=== PATIENT | female | born 1960 | race Caucasian/White ===

== ENCOUNTER 2016-10-23 15:05 | Outpatient (CLI) | payer MEDICARE ==
[~2016-10-23] VITALS: Ht 160 cm; Wt 84.0 kg
[~2016-10-23 15:05] MED LIST: ALDACTAZIDE 25/1 TAB PO; AMRIX; FLEXERIL 1010 MG/TAB PO; INDERIDE PO; LAMICTAL CD25 MG PO; LIDODERM PATCH TP; LISINOPRIL10 MG PO; LORTAB 7.5/5001 TAB PO; MEVACOR 20M20 MG/TAB PO; NIACIN500 M3 PO; NORCO 325 MG-101 TAB PO; PERCOCET 325 MG1 TA2 PO; PRILOSEC 20MG20 MG PO; PRINIVIL10 MG PO; VALIUM5 MG PO; VICODIN 5/5001 UDTAB PO; WELLBUTRIN SR150 M1 PO; WELLBUTRIN XL150 MG PO; [UNRECOGNIZED DRUG - MIXTURE]
[2016-10-23 15:29] VITALS: BP 100/53; PULSE 71; TEMP 98.1
[2016-11-30] MEDS ORDERED: ARIMIDEX1 MG PO (11:32)
== END 2016-10-23 16:03 | disposition home or self-care (01) ==
LOC: EUO 15:05
DX: C50.512 Malignant neoplasm of lower-outer quadrant of left female breast (principal); I10 Essential (primary) hypertension; Z45.2 Encounter for adjustment and management of vascular access device
CPT/HCPCS: J1644

== ENCOUNTER 2016-11-13 12:30 | Outpatient (RCR) | payer MEDICARE ==
[2016-11-30] MEDS ORDERED: ARIMIDEX1 MG PO (11:32)
== END 2016-11-23 | disposition home or self-care (01) ==
LOC: MKS.ESL.PT
DX: I89.0 Lymphedema, not elsewhere classified (principal); Z85.3 Personal history of malignant neoplasm of breast
CPT/HCPCS: G8984-GP; G8985-GP; G8987-GP

== ENCOUNTER → 2016-11-30 | Outpatient (CLI) | payer MEDICARE ==
[~2016-11-30] MED LIST changes: +ARIMIDEX1 MG PO; +B COMPLEX PO; +B-12 100 MCG PO; +CALCIUM CITRAT950 MG PO; +CYMBALTA 30MG30 MG PO; +HCTZ 25MG TAB25 MG PO; +INDERAL40 MG PO; +MAGNESIUM ELEME30 MG PO; +NORCO 325 MG-51 TAB PO; +VALIUM 5MG T5 MG/TAB PO; +VITAMIN D31000 I1 PO; +ZESTRIL 10MG10 MG PO; +ZINC SO4 PO
[2016-11-30 11:32] VITALS: BP 106/62; PULSE 73; TEMP 98.2
== END ==
LOC: EUO 11:00
DX: Z45.2 Encounter for adjustment and management of vascular access device (principal)
CPT/HCPCS: J1644

== ENCOUNTER 2016-12-01 12:30 | Outpatient (RCR) | payer MEDICARE ==
[~2016-12-01 12:30] MED LIST changes: -B COMPLEX PO; -B-12 100 MCG PO; -CALCIUM CITRAT950 MG PO; -CYMBALTA 30MG30 MG PO; -HCTZ 25MG TAB25 MG PO; -INDERAL40 MG PO; -MAGNESIUM ELEME30 MG PO; -NORCO 325 MG-51 TAB PO; -VALIUM 5MG T5 MG/TAB PO; -VITAMIN D31000 I1 PO; -ZESTRIL 10MG10 MG PO; -ZINC SO4 PO
[2017-02-02] MEDS ORDERED: NORCO 325 MG-51 TAB PO (10:30)
[2017-02-02] MEDS ORDERED: ARIMIDEX1 MG PO (10:31)
[2017-02-02] MEDS ORDERED: WELLBUTRIN SR150 M1 PO (10:32)
[2017-02-02] MEDS ORDERED: B COMPLEX PO (10:32)
[2017-02-02] MEDS ORDERED: CALCIUM CITRAT950 MG PO (10:35)
[2017-02-02] MEDS ORDERED: VALIUM 5MG T5 MG/TAB PO (10:37)
[2017-02-02] MEDS ORDERED: HCTZ 25MG TAB25 MG PO (10:39)
[2017-02-02] MEDS ORDERED: INDERAL40 MG PO (10:39)
[2017-02-02] MEDS ORDERED: ZESTRIL 10MG10 MG PO (10:41)
[2017-02-02] MEDS ORDERED: MAGNESIUM ELEME30 MG PO (10:44)
[2017-02-02] MEDS ORDERED: B-12 100 MCG PO (10:44)
[2017-02-02] MEDS ORDERED: VITAMIN D31000 I1 PO (10:46)
[2017-02-02] MEDS ORDERED: ZINC SO4 PO (10:47)
== END 2017-02-21 08:47 | disposition still patient (30) ==
LOC: MKS.ESL.PT 12:30
DX: I89.0 Lymphedema, not elsewhere classified (principal)
CPT/HCPCS: G8984-GP; G8985-GP

== ENCOUNTER → 2017-01-05 | Outpatient (CLI) | payer MEDICARE ==
[~2017-01-05] MED LIST changes: +B COMPLEX PO; +B-12 100 MCG PO; +CALCIUM CITRAT950 MG PO; +CYMBALTA 30MG30 MG PO; +HCTZ 25MG TAB25 MG PO; +INDERAL40 MG PO; +MAGNESIUM ELEME30 MG PO; +NORCO 325 MG-51 TAB PO; +VALIUM 5MG T5 MG/TAB PO; +VITAMIN D31000 I1 PO; +ZESTRIL 10MG10 MG PO; +ZINC SO4 PO
== END ==
LOC: COL.RAD 09:11
DX: R10.32 Left lower quadrant pain (principal); K92.1 Melena; K44.9 Diaphragmatic hernia without obstruction or gangrene; K76.0 Fatty (change of) liver, not elsewhere classified
CPT/HCPCS: Q9967

== ENCOUNTER 2017-02-02 09:18 | Day surgery (SDC) | payer MEDICARE ==
[~2017-02-02] VITALS: Ht 160 cm; Wt 81.0 kg
[~2017-02-02 09:18] MED LIST changes: -B COMPLEX PO; -B-12 100 MCG PO; -CALCIUM CITRAT950 MG PO; -CYMBALTA 30MG30 MG PO; -HCTZ 25MG TAB25 MG PO; -INDERAL40 MG PO; -MAGNESIUM ELEME30 MG PO; -NORCO 325 MG-51 TAB PO; -VALIUM 5MG T5 MG/TAB PO; -VITAMIN D31000 I1 PO; -ZESTRIL 10MG10 MG PO; -ZINC SO4 PO
[2017-02-02 10:15] VITALS: BP 115/77; PULSE 76; TEMP 98
[2017-02-02] MEDS ORDERED: NORCO 325 MG-51 TAB PO (10:30)
[2017-02-02] MEDS ORDERED: ARIMIDEX1 MG PO (10:31)
[2017-02-02] MEDS ORDERED: WELLBUTRIN SR150 M1 PO (10:32)
[2017-02-02] MEDS ORDERED: B COMPLEX PO (10:32)
[2017-02-02] MEDS ORDERED: CALCIUM CITRAT950 MG PO (10:35)
[2017-02-02] MEDS ORDERED: VALIUM 5MG T5 MG/TAB PO (10:37)
[2017-02-02] MEDS ORDERED: HCTZ 25MG TAB25 MG PO (10:39)
[2017-02-02] MEDS ORDERED: INDERAL40 MG PO (10:39)
[2017-02-02] MEDS ORDERED: ZESTRIL 10MG10 MG PO (10:41)
[2017-02-02] MEDS ORDERED: MAGNESIUM ELEME30 MG PO (10:44)
[2017-02-02] MEDS ORDERED: B-12 100 MCG PO (10:44)
[2017-02-02] MEDS ORDERED: VITAMIN D31000 I1 PO (10:46)
[2017-02-02] MEDS ORDERED: ZINC SO4 PO (10:47)
[2017-02-02 12:10] VITALS: BP 100/75; PULSE 62; TEMP 97.9
[2017-02-02 12:25] VITALS: BP 100/76; PULSE 63
[2017-02-02 12:40] VITALS: BP 101/40; PULSE 66
== END 2017-02-02 13:00 | disposition home or self-care (01) ==
LOC: SDCO 09:18
DX: K21.0 Gastro-esophageal reflux disease with esophagitis (principal); R19.5 Other fecal abnormalities; K64.1 Second degree hemorrhoids; K44.9 Diaphragmatic hernia without obstruction or gangrene; I10 Essential (primary) hypertension; E78.00 Pure hypercholesterolemia, unspecified; Z85.3 Personal history of malignant neoplasm of breast; Z87.891 Personal history of nicotine dependence
CPT/HCPCS: J2250; J2704; J3010; J7030

== ENCOUNTER 2017-03-27 14:24 | Outpatient (CLI) | payer MEDICARE ==
[~2017-03-27 14:24] MED LIST changes: +B COMPLEX PO; +B-12 100 MCG PO; +CALCIUM CITRAT950 MG PO; +HCTZ 25MG TAB25 MG PO; +INDERAL40 MG PO; +MAGNESIUM ELEME30 MG PO; +NORCO 325 MG-51 TAB PO; +VALIUM 5MG T5 MG/TAB PO; +VITAMIN D31000 I1 PO; +ZESTRIL 10MG10 MG PO; +ZINC SO4 PO
[2017-03-27 14:52] VITALS: BP 104/91; PULSE 88; TEMP 98.5
[2017-03-27] MEDS ORDERED: CYMBALTA 30MG30 MG PO (14:52)
== END 2017-03-27 14:54 | disposition home or self-care (01) ==
LOC: EUO 14:24
DX: C50.512 Malignant neoplasm of lower-outer quadrant of left female breast (principal); Z79.01 Long term (current) use of anticoagulants
CPT/HCPCS: J1644

== ENCOUNTER → 2017-06-07 | Outpatient (CLI) | payer MEDICARE ==
[~2017-06-07] MED LIST changes: +CYMBALTA 30MG30 MG PO
[2017-06-19 15:25] VITALS: BP 116/53; PULSE 72; TEMP 98.7
== END ==
LOC: EUO 05-07 14:00
DX: M16.12 Unilateral primary osteoarthritis, left hip (principal); S92.355D Nondisplaced fracture of fifth metatarsal bone, left foot, subsequent encounter for fracture with routine healing; Z85.3 Personal history of malignant neoplasm of breast
CPT/HCPCS: A9503

== ENCOUNTER → 2017-06-19 | Outpatient (CLI) | payer MEDICARE ==
[2017-06-19 15:00] VITALS: BP 134/60; PULSE 48; TEMP 98
== END ==
LOC: EUO 14:00
DX: C50.512 Malignant neoplasm of lower-outer quadrant of left female breast (principal); I10 Essential (primary) hypertension
CPT/HCPCS: J1644

== ENCOUNTER 2018-05-22 14:21 | Emergency (ER) | payer MEDICARE, BC ==
[~2018-05-22] VITALS: Ht 160 cm; Wt 81.8 kg
[2018-05-22 14:24] VITALS: TEMP 99.2
[2018-05-22 16:10] LABS: BASO % 0.6 % (0.0-2.0); EOS # 0.2 (0.0-0.7); EOS % 3.4 % (0-4.0); GRAN # 3.6 (1.4-6.5); GRAN % 54.1 % (42.2-75.2); HEMOGLOBIN 11.8 g/dl (12.5-16.0); LYMPH # 2.2 (1.2-3.4); LYMPH % 32.4 % (20.0-51.0); MEAN CELL VOLUME 96 fl (80.0-100.0); MEAN CORPUSCULAR HEMOGLOBIN 32 pg (27.0-31.0); MEAN CORPUSCULAR HGB CONC 34 g/dl (33.0-37.0); MEAN PLATELET VOLUME 9.9 fl (7.4-10.4); MONO # 0.6 (0.1-0.6); MONO % 9.1 % (1.7-9.3); PLATELET COUNT 232 K/mm3 (130-400); RED BLOOD COUNT 3.66 M/mm3 (4.10-5.30); REDCELL DISTRIBUTION WIDTH-CV 12.9 % (11.5-14.5)
[2018-05-22 16:14] LABS: HEMATOCRIT 35.2 % (37.0-47.0)
[2018-05-22 16:37] LABS: ALANINE AMINOTRANSFERASE 39 U/L (9-52); ALBUMIN 3.7 gm/dL (3.5-5.0); ALKALINE PHOSPHATASE 76 U/L (50-136); ANION GAP 9 mmol/L (7-16); AST,SGOT 30 U/L (15-37); BILIRUBIN,TOTAL 0.4 mg/dL (0.0-1.0); BLOOD UREA NITROGEN 8 mg/dL (7-17); C-REACTIVE PROTEIN 1.1 mg/dL (0.0-0.9); CALCIUM 9.2 mg/dL (8.4-10.2); CARBON DIOXIDE 31 mmol/L (22-30); CHLORIDE 96 mmol/L (98-107); CREATININE, serum 0.62 mg/dL (0.52-1.25); GLUCOSE 92 mg/dL (74-106); MAGNESIUM 1.6 mg/dL (1.6-2.3); POTASSIUM 3.1 mmol/L (3.4-5.0); SODIUM 136 mmol/L (137-145); TOTAL PROTEIN 6.7 gm/dL (6.4-8.2)
[2018-05-22 16:47] LABS: TROPONIN-I < 0.012 ng/mL (0.000-0.034)
[2018-05-22] MEDS ORDERED: VITAMINC1000TA (16:50)
[2018-05-22] MEDS ORDERED: BIOTIN300 MCG PO (16:51)
[2018-05-22] MEDS ORDERED: BIOTIN800 MCG PO (16:52)
[2018-05-22] MEDS ORDERED: VITAMIN B11000 MCG/M IM (16:52)
[2018-05-22] MEDS ORDERED: LASIX 20MG TABL20 MG PO (17:08)
[2018-05-22] MEDS ORDERED: ANTIVERT 25MG25 MG PO (17:08)
[2018-05-22] MEDS ORDERED: K-DUR20 MEQ PO (17:09)
[2018-05-22 17:26] VITALS: BP 127/89; PULSE 77
== END 2018-05-22 17:28 | disposition home or self-care (01) ==
LOC: COL.ER 14:21
PROVIDERS: Emergency Medicine
DX: R42 Dizziness and giddiness (principal); R60.9 Edema, unspecified; E87.6 Hypokalemia; I10 Essential (primary) hypertension; K21.9 Gastro-esophageal reflux disease without esophagitis
CPT/HCPCS: J2060

== ENCOUNTER → 2018-11-11 | Outpatient (CLI) | payer MEDICARE ==
[~2018-11-11] MED LIST changes: +ANTIVERT 25MG25 MG PO; +BIOTIN300 MCG PO; +BIOTIN800 MCG PO; +K-DUR20 MEQ PO; +LASIX 20MG TABL20 MG PO; +VITAMIN B11000 MCG/M IM; +VITAMINC1000TA
== END ==
LOC: COL.VAS 11:00
DX: R06.02 Shortness of breath (principal)

== ENCOUNTER 2019-12-29 08:00 | Outpatient (RCR) | payer MEDICARE ==
[2019-11-29 09:12] VITALS: BP 117/73; PULSE 69; TEMP 98.2
[2019-11-30 08:17] VITALS: BP 137/83; PULSE 72; TEMP 98.2
[2019-12-01 08:24] VITALS: BP 128/83; PULSE 77; TEMP 98
[2019-12-02 08:27] VITALS: BP 136/59; PULSE 75; TEMP 98.7
[2019-12-03 08:30] VITALS: BP 119/80; PULSE 82; TEMP 98.4
[2019-12-03 08:59] LABS: HEMOGLOBIN 12.3 g/dl (12.5-16.0); MEAN CELL VOLUME 96 fl (80.0-100.0); MEAN CORPUSCULAR HEMOGLOBIN 31 pg (27.0-31.0); MEAN CORPUSCULAR HGB CONC 32 g/dl (33.0-37.0); MEAN PLATELET VOLUME 9.6 fl (7.4-10.4); PLATELET COUNT 319 K/mm3 (130-400); RED BLOOD COUNT 3.95 M/mm3 (4.10-5.30); REDCELL DISTRIBUTION WIDTH-CV 13.9 % (11.5-14.5)
[2019-12-03 09:11] LABS: ALBUMIN 3.7 gm/dL (3.5-5.0); BILIRUBIN,TOTAL 0.5 mg/dL (0.0-1.0); C-REACTIVE PROTEIN 1.2 mg/dL (0.0-0.9); CALCIUM 9.3 mg/dL (8.4-10.2); CREATININE, serum 0.66 (0.52-1.25); POTASSIUM 3.7 mmol/L (3.4-5.0); TOTAL PROTEIN 6.7 gm/dL (6.4-8.2)
[2019-12-04 08:23] VITALS: BP 125/72; PULSE 80; TEMP 98
[2019-12-05 08:32] VITALS: BP 133/92; PULSE 91; TEMP 98.4
[2019-12-06 08:00] VITALS: BP 121/66; PULSE 79; TEMP 79
[2019-12-07 08:20] VITALS: BP 126/82; PULSE 81; TEMP 99.2
[2019-12-08 08:33] VITALS: BP 148/68; PULSE 83; TEMP 98.5
[2019-12-08 08:55] LABS: HEMOGLOBIN 11.6 g/dl (12.5-16.0); MEAN CELL VOLUME 98 fl (80.0-100.0); MEAN CORPUSCULAR HEMOGLOBIN 31 pg (27.0-31.0); MEAN CORPUSCULAR HGB CONC 32 g/dl (33.0-37.0); MEAN PLATELET VOLUME 9.5 fl (7.4-10.4); PLATELET COUNT 286 K/mm3 (130-400); RED BLOOD COUNT 3.71 M/mm3 (4.10-5.30); REDCELL DISTRIBUTION WIDTH-CV 13.8 % (11.5-14.5)
[2019-12-08 09:08] LABS: HEMATOCRIT 36.2 % (37.0-47.0)
[2019-12-08 09:12] LABS: ALBUMIN 3.7 gm/dL (3.5-5.0); BILIRUBIN,TOTAL 0.2 mg/dL (0.0-1.0); C-REACTIVE PROTEIN 1.3 mg/dL (0.0-0.9); CALCIUM 9.2 mg/dL (8.4-10.2); CREATININE, serum 0.62 (0.52-1.25); POTASSIUM 3.5 mmol/L (3.4-5.0); TOTAL PROTEIN 6.7 gm/dL (6.4-8.2)
[2019-12-09 08:30] VITALS: BP 114/54; PULSE 78; TEMP 98.9
[2019-12-10 08:44] VITALS: BP 112/76; PULSE 75; TEMP 98.2
[2019-12-11 08:23] VITALS: BP 126/68; PULSE 78; TEMP 98.5
[2019-12-12 08:25] VITALS: BP 110/78; PULSE 72; TEMP 99.2
[2019-12-13 08:25] VITALS: BP 114/57; PULSE 76; TEMP 98.3
[2019-12-14 08:20] VITALS: BP 111/75; PULSE 77; TEMP 97.7
[2019-12-15 08:49] VITALS: BP 112/67; PULSE 75; TEMP 99.1
[2019-12-15 11:07] LABS: HEMOGLOBIN 11.8 g/dl (12.5-16.0); MEAN CELL VOLUME 97 fl (80.0-100.0); MEAN CORPUSCULAR HEMOGLOBIN 32 pg (27.0-31.0); MEAN CORPUSCULAR HGB CONC 33 g/dl (33.0-37.0); MEAN PLATELET VOLUME 10.1 fl (7.4-10.4); PLATELET COUNT 266 K/mm3 (130-400); RED BLOOD COUNT 3.72 M/mm3 (4.10-5.30); REDCELL DISTRIBUTION WIDTH-CV 13.7 % (11.5-14.5)
[2019-12-15 11:08] LABS: HEMATOCRIT 35.9 % (37.0-47.0)
[2019-12-15 11:16] LABS: ALBUMIN 3.8 gm/dL (3.5-5.0); BILIRUBIN,TOTAL 0.4 mg/dL (0.0-1.0); C-REACTIVE PROTEIN 1.4 mg/dL (0.0-0.9); CALCIUM 9.3 mg/dL (8.4-10.2); CREATININE, serum 0.6 (0.52-1.25); POTASSIUM 3.5 mmol/L (3.4-5.0); TOTAL PROTEIN 6.7 gm/dL (6.4-8.2)
[2019-12-16 08:29] VITALS: BP 123/90; PULSE 78; TEMP 98.6
[2019-12-17 08:20] VITALS: BP 146/88; PULSE 82; TEMP 98.7
[2019-12-18 08:24] VITALS: BP 119/81; PULSE 75; TEMP 98.4
[2019-12-19 08:21] VITALS: BP 139/93; PULSE 75; TEMP 97.8
--- NOTE | 2019-12-19 08:40 | NUR ---
PICC intact right upper arm with sterile dressing change done with insertion site cleansed with chloraprep x 1, chlorhexidine impregnated disk applied, skin prep, stat lock, and tegaderm applied. no signs or symptoms of IV complications noted. no concerns voiced. re-wrapped with roger to protect catheter.
[2019-12-20 09:31] VITALS: BP 136/78; PULSE 87; TEMP 98.3
[2019-12-21 08:18] VITALS: BP 124/79; PULSE 70; TEMP 98.1
[2019-12-22 08:32] VITALS: BP 120/77; PULSE 79; TEMP 98.7
[2019-12-22 09:11] LABS: HEMOGLOBIN 12.1 g/dl (12.5-16.0); MEAN CELL VOLUME 96 fl (80.0-100.0); MEAN CORPUSCULAR HEMOGLOBIN 31 pg (27.0-31.0); MEAN CORPUSCULAR HGB CONC 33 g/dl (33.0-37.0); MEAN PLATELET VOLUME 10.2 fl (7.4-10.4); PLATELET COUNT 248 K/mm3 (130-400); RED BLOOD COUNT 3.86 M/mm3 (4.10-5.30); REDCELL DISTRIBUTION WIDTH-CV 14.1 % (11.5-14.5)
[2019-12-22 09:12] LABS: HEMATOCRIT 36.9 % (37.0-47.0)
[2019-12-22 09:30] LABS: ALBUMIN 3.9 gm/dL (3.5-5.0); BILIRUBIN,TOTAL 0.4 mg/dL (0.0-1.0); C-REACTIVE PROTEIN 1.5 mg/dL (0.0-0.9); CALCIUM 9.3 mg/dL (8.4-10.2); CREATININE, serum 0.89 (0.52-1.25); POTASSIUM 3.6 mmol/L (3.4-5.0); TOTAL PROTEIN 6.8 gm/dL (6.4-8.2)
[2019-12-23 08:26] VITALS: BP 117/69; PULSE 75; TEMP 97.8
[2019-12-24 08:31] VITALS: BP 116/41; PULSE 77; TEMP 98.4
[2019-12-25 08:25] VITALS: BP 132/90; PULSE 78; TEMP 97.7
--- NOTE | 2019-12-26 08:20 | NUR ---
PICC intact right upper arm with sterile dressing change done with insertion site cleansed with chloraprep x 1, chlorhexidine impregnated disk applied, skin prep, stat stat lock, and tegaderm applied. no signs or symptoms of IV complications noted. no concerns voiced. re-wrapped with roger to protect catheter. to continue with cares in [place]. voiced understanding of instructions.
[2019-12-26 08:53] VITALS: BP 128/66; PULSE 75; TEMP 98
[2019-12-27 08:45] VITALS: BP 160/108; PULSE 80; TEMP 97.5
[2019-12-28 08:30] VITALS: BP 127/82; PULSE 78; TEMP 98.2
[~2019-12-29] VITALS: Ht 160 cm; Wt 82.7 kg
[~2019-12-29 08:00] MED LIST changes: -B-12 100 MCG PO; +B-121000 MCG PO; -BIOTIN300 MCG PO; +LINZESS145CAP PO; +NATURAL MAGNES200 MG PO; +NATURAL ZINC50 MG PO; +NATURE'S BLE1000 MCG PO; +VITAMIN C500 MG PO; -VITAMINC1000TA
[2019-12-29 08:45] LABS: HEMATOCRIT 37.2 % (37.0-47.0); HEMOGLOBIN 12.3 g/dl (12.5-16.0); MEAN CELL VOLUME 97 fl (80.0-100.0); MEAN CORPUSCULAR HEMOGLOBIN 32 pg (27.0-31.0); MEAN CORPUSCULAR HGB CONC 33 g/dl (33.0-37.0); PLATELET COUNT 261 K/mm3 (130-400); RED BLOOD COUNT 3.85 M/mm3 (4.10-5.30)
[2019-12-29 08:47] VITALS: BP 127/95; PULSE 81; TEMP 98.8
[2019-12-29 08:59] LABS: BILIRUBIN,TOTAL 0.4 mg/dL (0.0-1.0); C-REACTIVE PROTEIN 1.3 mg/dL (0.0-0.9); CALCIUM 9.5 mg/dL (8.4-10.2); CREATININE, serum 0.67 (0.52-1.25); POTASSIUM 3.6 mmol/L (3.4-5.0); TOTAL PROTEIN 6.9 gm/dL (6.4-8.2)
--- NOTE | 2019-12-29 09:16 | NUR ---
Clarified with HalieNurse at Dr Wilson office at [facility].Ok to removed picc line today.Pt to start on oral abx at home.Per pt she has script already at home filled by office for oral abx.PICC line removed by TOM Smith.
== END 2019-12-29 09:54 | disposition home or self-care (01) ==
LOC: EUO 08:00
PROVIDERS: Internal Medicine Infectious Disease; Orthopaedic Surgery
DX: M01.X71 Direct infection of right ankle and foot in infectious and parasitic diseases classified elsewhere (principal)
CPT/HCPCS: C1751; J0696

== ENCOUNTER 2021-07-20 04:19 | Emergency (ER) | payer MEDICARE ==
[~2021-07-20] VITALS: Ht 162.6 cm; Wt 81.8 kg
[2021-07-20 05:55] VITALS: BP 105/61; PULSE 99; TEMP 98.1
== END 2021-07-20 05:56 | disposition home or self-care (01) ==
LOC: COL.ER 04:19
DX: L23.9 Allergic contact dermatitis, unspecified cause (principal); G89.29 Other chronic pain; M79.604 Pain in right leg; R42 Dizziness and giddiness; R60.0 Localized edema; Z88.6 Allergy status to analgesic agent

== ENCOUNTER 2021-11-11 11:15 | Outpatient (RCR) | payer MEDICARE | END 2021-11-14 | disposition still patient (30) | LOC: WSPT | DX: R26.89 Other abnormalities of gait and mobility (principal); Z91.81 History of falling ==

== ENCOUNTER 2021-12-07 11:15 | Outpatient (RCR) | payer MEDICARE | END 2021-12-15 | disposition home or self-care (01) | LOC: WSPT | DX: R26.89 Other abnormalities of gait and mobility (principal); Z91.81 History of falling ==

== ENCOUNTER 2021-12-28 11:15 | Outpatient (RCR) | payer MEDICARE | END 2022-01-14 | disposition home or self-care (01) | LOC: WSPT | DX: R26.89 Other abnormalities of gait and mobility (principal); Z91.81 History of falling ==

== ENCOUNTER 2022-01-16 12:32 | Outpatient (RCR) | payer MEDICARE | END 2022-01-17 08:53 | disposition home or self-care (01) | LOC: WSPT 12:32 | DX: R26.89 Other abnormalities of gait and mobility (principal); Z91.81 History of falling ==

== ENCOUNTER 2023-02-17 14:20 | Emergency (ER) | payer MEDICARE ==
[~2023-02-17] VITALS: Ht 160 cm; Wt 75.0 kg
[2023-02-17 15:03] VITALS: BP 153/96; PULSE 89; TEMP 98.3
== END 2023-02-17 15:03 | disposition home or self-care (01) ==
LOC: COL.ER 14:20
DX: F22 Delusional disorders (principal); F17.200 Nicotine dependence, unspecified, uncomplicated

== ENCOUNTER 2023-08-15 13:30 | Outpatient (RCR) | payer MEDICARE | END 2023-08-16 | disposition home or self-care (01) | LOC: WSPT | DX: M25.512 Pain in left shoulder (principal) ==

== ENCOUNTER 2023-09-14 14:15 | Outpatient (RCR) | payer MEDICARE | END 2023-09-16 | disposition home or self-care (01) | LOC: WSPT | DX: M25.512 Pain in left shoulder (principal) ==

== ENCOUNTER 2023-10-03 14:15 | Outpatient (RCR) | payer MEDICARE | END 2023-10-03 16:00 | disposition home or self-care (01) | LOC: WSPT 14:15 | DX: M25.512 Pain in left shoulder (principal); Z98.890 Other specified postprocedural states ==